=== PATIENT | male | born 1955 | race Hispanic/Latino ===

== ENCOUNTER 2019-12-22 21:33 | Inpatient (IN) | payer MEDICARE ==
[~2019-12-22] VITALS: Ht 177.8 cm; Wt 113.9 kg
[2019-12-22] MEDS ORDERED: SODIUM CHLORIDE 0.9% 1000ML 1,000 ML IV ONE ×2 (21:47→21:48)
[2019-12-22] MEDS ORDERED: HYDROMORPHONE 1 MG/1 ML AMP ONE (21:51)
[2019-12-22] MEDS ORDERED: METOCLOPRAMIDE 10 MG/2 ML VIAL ONE (22:02)
[2019-12-22] MEDS ORDERED: ZOSYN 3.375GM+NS 50ML 50 ML IV ONE (22:02)
[2019-12-22] MEDS ORDERED: ONDANSETRON HCL 4 MG/2 ML VIAL ONE (22:02)
[2019-12-22 22:11] LABS: BASOPHILS % (AUTO) 0.4 % (0.0-5.0); EOSINOPHILS % (AUTO) 0.6 % (0.0-8.0); LYMPHOCYTES % (AUTO) 7.9 % (21.0-51.0); MEAN CORPUSCULAR HEMOGLOBIN 29.9 pg (27.0-33.0); MEAN CORPUSCULAR HGB CONC 33.8 g/dL (32.0-36.0); MEAN CORPUSCULAR VOLUME 88.5 fL (79-99); MONOCYTES % (AUTO) 8.6 % (3.0-13.0); PLATELET COUNT (AUTO) 330 K/uL (130-400); RED BLOOD CELL COUNT(AUTO) 5.31 MIL/uL (4.50-6.20); RED CELL DISTRIBUTION WIDTH 13.4 % (11.0-15.5); WHITE BLOOD COUNT (AUTO) 25.7 K/uL (4.8-10.8)
[2019-12-22 22:28] LABS: INR 1.28 (0.85-1.15); PARTIAL THROMBOPLASTIN TIME 37.6 SEC (26.3-35.5); PROTHROMBIN TIME 13.7 SEC (9.6-11.6)
[2019-12-22 22:33] LABS: CREATININE 4.9 mg/dL (0.5-1.5); POTASSIUM 3.7 mmol/L (3.5-5.1)
[2019-12-22 22:55] LABS: ALBUMIN 3.2 g/dL (3.5-5.0); BILIRUBIN,TOTAL 1.9 mg/dL (0.2-1.0); TOTAL PROTEIN, SERUM 7.9 g/dL (6.0-8.3)
[2019-12-22 22:59] LABS: APPEARANCE,URINE Cloudy (CLEAR); BILIRUBIN,URINE Moderate (NEGATIVE); COLOR,URINE Dark Yellow (YELLOW); GLUCOSE, URINE (UA) Negative (NEGATIVE); KETONES,URINE Trace mg/dL (NEGATIVE); LEUKOCYTE ESTERASE ,URINE Trace (NEGATIVE); NITRATE,URINE Positive (NEGATIVE); OCCULT BLOOD,URINE Negative (NEGATIVE); PROTEIN,URINE POS 2+ mg/dL (NEGATIVE)
[2019-12-22] MEDS ORDERED: DEXTROSE 50%-WATER 50 ML DISP.SYRIN IV ONE (23:07)
[2019-12-22 23:27] LABS: AMORPHOUS SEDIMENT,UR Few /LPF (None Seen); BACTERIA,URINE Rare /HPF (None Seen); RBC,URINE None Seen /HPF (0-1); SQUAMOUS EPITHELIAL CELL,UR Rare /HPF (0-2); WBC,URINE 0-1 /HPF (0-1)
[2019-12-23] VITALS (23 sets, daily range): BP systolic 101–154; BP diastolic 59–83
[2019-12-23] MEDS ORDERED: ONDANSETRON HCL 4 MG/2 ML VIAL IV PRN (00:45)
[2019-12-23] MEDS ORDERED: GLUCAGON 1MG KIT 1 MG ML IM PRN (00:45)
[2019-12-23] MEDS ORDERED: DEXTROSE 5 %-0.45 % NACL 1,000 ML IV SCH (00:45)
[2019-12-23] MEDS: DEXTROSE 5 %-0.45 % NACL 1,000 ML IV SCH ×2 (00:45→05:12)
[2019-12-23] MEDS ORDERED: NITROGLYCERIN 0.4 MG SL TAB SL PRN (00:45)
[2019-12-23] MEDS ORDERED: MORPHINE SULFATE 2 MG/ML 1ML SYG IV PRN (00:45)
[2019-12-23] MEDS ORDERED: DEXTROSE 50%-WATER 50 ML DISP.SYRIN IV PRN (00:45)
[2019-12-23] MEDS ORDERED: ACETAMINOPHEN 325 MG TAB PO PRN ×2 (00:45)
[2019-12-23] MEDS ORDERED: METRONIDAZOLE 500MG/100ML BAG 100 ML ONE (01:04)
[2019-12-23] MEDS ORDERED: MORPHINE SULFATE 2 MG/ML 1ML SYG ONE (01:04)
[2019-12-23] MEDS ORDERED: AMLO10TA7 PO (03:52)
[2019-12-23] MEDS ORDERED: HYDR25TA PO (03:52)
[2019-12-23] MEDS ORDERED: ROSU10TA28 PO (03:52)
[2019-12-23] MEDS ORDERED: LISI-613 PO (03:52)
[2019-12-23] MEDS: FAMOTIDINE/PF 20 MG/2 ML VIAL IV SCH (08:49)
[2019-12-23] MEDS: METRONIDAZOLE 500MG/100ML BAG 100 ML IV SCH ×2 (08:49→17:19)
[2019-12-23 09:19] LABS: HEMATOCRIT 38.8 % (42-54); MEAN CORPUSCULAR HEMOGLOBIN 29.6 pg (27.0-33.0); MEAN CORPUSCULAR HGB CONC 34.5 g/dL (32.0-36.0); MEAN CORPUSCULAR VOLUME 85.7 fL (79-99); RED BLOOD CELL COUNT(AUTO) 4.53 MIL/uL (4.50-6.20); RED CELL DISTRIBUTION WIDTH 13.4 % (11.0-15.5); WHITE BLOOD COUNT (AUTO) 18.7 K/uL (4.8-10.8)
[2019-12-23 09:42] LABS: CREATININE 2.9 mg/dL (0.5-1.5); POTASSIUM 3.8 mmol/L (3.5-5.1)
[2019-12-23] MEDS: ZOSYN 3.375GM+NS 50ML 50 ML IV SCH ×2 (11:10→21:05)
[2019-12-23] MEDS ORDERED: LACTATED RINGERS 1000ML 1,000 ML IV ONE (12:26)
[2019-12-23] MEDS ORDERED: DEXAMETHASONE SOD PHOSPHATE 10MG/ML 1ML VIAL ONE (12:46)
[2019-12-23] MEDS ORDERED: SUCCINYLCHOLINE CHLORIDE 20 MG/ML 10 ML VIAL ONE (12:46)
[2019-12-23] MEDS ORDERED: LIDOCAINE PF 2% 5ML ABBOJECT ONE (12:46)
[2019-12-23] MEDS ORDERED: PROPOFOL 10 MG/ML 20ML VIAL IV ONE (12:47)
[2019-12-23] MEDS ORDERED: ROCURONIUM 10MG/1ML SYR 10 MG/ML ML ONE ×2 (12:47→13:39)
[2019-12-23] MEDS ORDERED: NEOSTIGMINE 5MG/5ML SYR IV ONE (12:47)
[2019-12-23] MEDS ORDERED: ONDANSETRON HCL 4 MG/2 ML VIAL ONE (12:47)
[2019-12-23] MEDS ORDERED: GLYCOPYRROLATE 1 MG/5 ML SYRINGE ONE (12:47)
[2019-12-23] MEDS ORDERED: MIDAZOLAM HCL 1 MG/ML 2ML VIAL ONE ×2 (12:47→13:08)
[2019-12-23] MEDS ORDERED: FENTANYL CITRATE PF 50 MCG/1 ML 2ML VIAL ONE ×2 (12:48→13:10)
[2019-12-23] MEDS ORDERED: BUPIVACAINE/PF 0.5% 30ML VIAL ONE (12:56)
[2019-12-23] MEDS ORDERED: PHENYLEPHRINE HCL 10 MG/ML 1ML VIAL IV ONE (13:23)
[2019-12-23] MEDS ORDERED: SUGAMMADEX SODIUM 200 MG/2 ML VIAL IV ONE (14:39)
[2019-12-23] MEDS: DEXTROSE 5 % AND 0.9 % NACL 1,000 ML IV SCH (15:50)
--- NOTE | 2019-12-23 16:00 | NUR ---
PATIENT RECEIVED FROM OR PATIENT RECEIVED FROM OR AT THIS TIME S/P LAP APPY BY DR FONTANA; ABD DRESSINGS DRY AND INTACT; IKE DRAIN NOTED TO RIGHT LOWER ABD, DRAINING SMALL AMOUNT OF SEROUS FLUID; NO COMPLAINTS VOICED BY PATIENT AT THIS TIME. HE IS AWAKE, ALERT, AND ORIENTED; STATES HE IS NOT HAVING PAIN AT THIS TIME. WILL CONTINUE TO MONITOR
[2019-12-23 16:27] LABS: CREATININE 2.6 mg/dL (0.5-1.5); POTASSIUM 3.9 mmol/L (3.5-5.1)
--- NOTE | 2019-12-23 18:28 | NUR ---
cm note pt resides at home with spouse, independent with adls/ambulation no dme, no home services. dc plan is back home at time of dc. Addendum: 12/23/19 at 1830 by TESFAYE STONE CM Amended: Links added.
--- NOTE | 2019-12-23 18:50 | NUR ---
FOLLOW UP DRESSINGS TO ABD AND IKE DRAIN REMAIN CLEAN, DRY, AND INTACT. PATIENT STATES HE IS DOING OK. NO COMPLAINTS NOTED AT THIS TIME
[2019-12-23 21:53] LABS: CREATININE 2.2 mg/dL (0.5-1.5); POTASSIUM 3.7 mmol/L (3.5-5.1)
[2019-12-24] VITALS (15 sets, daily range): BP systolic 94–159; BP diastolic 43–90
[2019-12-24] MEDS: METRONIDAZOLE 500MG/100ML BAG 100 ML IV SCH ×3 (02:45→17:00)
[2019-12-24 03:54] LABS: BASOPHILS % (AUTO) 0.2 % (0.0-5.0); EOSINOPHILS % (AUTO) 0.2 % (0.0-8.0); HEMATOCRIT 33.7 % (42-54); LYMPHOCYTES % (AUTO) 2.2 % (21.0-51.0); MEAN CORPUSCULAR HEMOGLOBIN 29.5 pg (27.0-33.0); MEAN CORPUSCULAR HGB CONC 34.4 g/dL (32.0-36.0); MEAN CORPUSCULAR VOLUME 85.8 fL (79-99); MONOCYTES % (AUTO) 4.1 % (3.0-13.0); PLATELET COUNT (AUTO) 204 K/uL (130-400); RED BLOOD CELL COUNT(AUTO) 3.93 MIL/uL (4.50-6.20); RED CELL DISTRIBUTION WIDTH 13.4 % (11.0-15.5)
[2019-12-24 04:08] LABS: MAGNESIUM 1.6 mg/dL (1.80-2.40); PHOSPHORUS 3.1 mg/dL (2.5-4.9); POTASSIUM 3.7 mmol/L (3.5-5.1)
[2019-12-24] MEDS: DEXTROSE 5 % AND 0.9 % NACL 1,000 ML IV SCH ×4 (04:35→17:55)
--- NOTE | 2019-12-24 05:39 | NUR ---
RN FLOAT AWARE (REY COURTNEY) OF BLOOD CULTURES RESULTS AND AWARE PT HAS SOME WHEEZING AND O2 BUMPED TO 3 LITERS NASAL CANULA PT DENIES CHEST PAIN PT DENIES ANY PAIN SHE STATED SHE WOULD PLACE SOME ORDERS IN
[2019-12-24] MEDS ORDERED: ALBUTEROL INHALER 90MCG/INH IH PRN (06:00)
[2019-12-24] MEDS ORDERED: NON-FORMULARY MEDICATION 1 EACH (Amlodipine Besylate 10 MG) PO SCH (09:00)
[2019-12-24] MEDS ORDERED: NON-FORMULARY MEDICATION 1 EACH (Rosuvastatin Calcium 10 MG) PO SCH (09:00)
[2019-12-24] MEDS ORDERED: ATORVASTATIN CALCIUM 20 MG TABLET PO SCH (09:00)
[2019-12-24] MEDS: FAMOTIDINE/PF 20 MG/2 ML VIAL IV SCH (09:08)
[2019-12-24] MEDS: AMLODIPINE BESYLATE 5 MG TAB PO SCH (09:18)
[2019-12-24] MEDS: ZOSYN 3.375GM+NS 50ML 50 ML IV SCH ×2 (09:18→22:02)
[2019-12-24] MEDS: LORAZEPAM 2 MG/ML 1 ML VIAL IM PRN ×2 (09:33→15:15)
[2019-12-24] MEDS ORDERED: DILTIAZEM HCL 5 MG/ML 10 ML VIAL IV SCH (09:45)
[2019-12-24] MEDS ORDERED: DILTIAZEM HCL 5 MG/ML 10 ML VIAL IV ONE (09:56)
[2019-12-24 10:01] LABS: CARBON DIOXIDE 16 mmol/L (21-32); CHLORIDE 106 mmol/L (101-111); CREATININE 2.2 mg/dL (0.5-1.5); GLOMERULAR FILTR. RATE CALC 32 mL/min (>60); GLUCOSE,RANDOM 153 mg/dL (70-105); POTASSIUM 3.4 mmol/L (3.5-5.1); SODIUM SERUM 137 mmol/L (136-145); UREA NITROGEN, BLOOD 40 mg/dL (7-18)
--- NOTE | 2019-12-24 10:02 | NUR ---
CHART CHECK COMPLETED. Pt IS A 64 Y.O. MALE ADMITTED SECONDARY TO ACUTE APPENDICITIS, ACUTE RENAL FAILURE, AND SEVERE SEPSIS. Pt HAS A PAST MEDICAL HISTORY SIGNIFICANT FOR HYPERTENSION, HLD, COLONOSCOPY. Pt CURRENTLY NPO SECONDARY TO ADMITTING DIAGNOSIS. PLEASE REQUEST FORMAL SKILLED SPEECH/SWALLOW EVALUATION IF Pt PRESENTS WITH +S/S OF ASPIRATION SUCH COUGH RESPONSE, THROAT CLEAR, OR WET VOCAL QUALITY DURING P.O. Addendum: 12/24/19 at 1006 by KEVON CHI, [facility], [address] Amended: Links added.
[2019-12-24 10:27] LABS: ALANINE AMINOTRANSFERASE 205 U/L (12-78); ALBUMIN 2.1 g/dL (3.5-5.0); ASPARTATE AMINOTRANSFERASE 257 U/L (10-37); BILIRUBIN,TOTAL 1.4 mg/dL (0.2-1.0); MYOGLOBIN 1481 ng/mL (10-92); TOTAL PROTEIN, SERUM 6.5 g/dL (6.0-8.3); TROPONIN I < 0.04 ng/mL (0.00-0.06)
[2019-12-24 10:31] LABS: CREATINE KINASE, TOTAL 3357 U/L (21-232)
[2019-12-24] MEDS ORDERED: PHARMACY COMMUNICATION MISC SCH (11:15)
--- NOTE | 2019-12-24 11:52 | NUR ---
BPCI Letter given to patient.
[2019-12-24 11:57] LABS: HEMATOCRIT 35.2 % (42-54)
[2019-12-24] MEDS: DILTIAZEM 125MG+100 ML NS 125 ML IV SCH (13:01)
--- NOTE | 2019-12-24 13:45 | NUR ---
ID CONSULT DR KNIGHT MADE AWARE OF CONSULT AT THIS TIME. NO NEW ORDERS GIVEN.
[2019-12-24] MEDS ORDERED: LORAZEPAM 2 MG/ML 1 ML VIAL IVP PRN (14:00)
--- NOTE | 2019-12-24 15:15 | NUR ---
PT WAS RECEIVED FROM 413 AFTER RAPID RESPONSE. PT WAS INTUBATED AND SETTINGS PRESCRIBED PER DR. COHEN. PT HAD RIGHT IJ 3 LUMEN PLACED, AND ARTERIAL LINE PLACED. DR. COHEN AT BEDSIDE AND ORDERS NOTED.
[2019-12-24 15:36] LABS: ABG BASE EXCESS -8.5 mmol/L (-2.0-3.0); ABG HCO3 17.4 mmol/L (21.0-28.0); ABG OXYGEN SATURATION 92.3 % (95.0-99.0); ABG PCO2 37 mmHg (35-48)
--- NOTE | 2019-12-24 15:40 | NUR ---
RAPID RESPONSE PATIENT HAD BEEN DIAPHORETIC, RESTLESS, CONFUSED, PULLED OUT PIV'S, DEVELOPED A FIB RVR WITH RATE IN 160S THIS AM; DR TABARES AND DR FONTANA HAVE BEEN CONSTANTLY GIVEN UPDATES ON PATIENT THROUGHOUT THE MORNING. NEW CONSULTS, NEW MED ORDERS PLACED, O2 REQUIREMENTS GRADUALLY INCREASING; KUB DONE, US BLE DONE, 1:1 SITTER ORDERED. INTERVENTIONS NOT WORKING. PATIENT CONTINUED TO REMOVE LEADS, O2, TRYING TO GET OOB, ATIVAN IM GIVEN, PATIENT STARTED SATTING 87-88% ON 6L NC, TACHYPNIC, TACHCARDIC, SUSTAINED A FIB RVR RATE IN 120S, CARDIZEM DRIP MAXED ALREADY AT 15MG/HR. PATIENT HAD HAD SMALL PERIODS OF INTERMITTANT REST PERIODS IN AM, BUT BECAME MORE AND MORE CONFUSED AND DIAPHORETIC. DR COHEN AND DR ROBERT MADE AWARE. RAPID RESPONSE CALLED. CHARGE NURSE, DAYLIN, UPDATING PATIENT'S VIA TELEPHONE. PATIENT TAKEN TO ICU AND REPORT GIVEN TO ICU NURSE, YOUNG ARZATE RN. CARE TO BE CONTINUED IN ICU. TO COME IN TO SEE PATIENT SOON, ACCORDING TO CHARGE NURSE. BARRY PACHECO FOR DR FONTANA ALSO NOTIFIED OF EVENTS AND PATIENT TRANSFER TO ICU.
[2019-12-24] MEDS ORDERED: SUCCINYLCHOLINE CHLORIDE 20 MG/ML 10 ML VIAL ONE (15:45)
[2019-12-24] MEDS ORDERED: KETAMINE 50MG/ML SYRINGE 50 MG/ML DISP.SYRIN IV ONE (15:46)
[2019-12-24] MEDS ORDERED: PROPOFOL 10 MG/ML 20ML VIAL IV ONE (15:46)
[2019-12-24] MEDS ORDERED: PROPOFOL 1000 MG/100 ML 100 ML IV ONE (15:51)
[2019-12-24] MEDS ORDERED: SODIUM CHLORIDE 0.9% 500ML 500 ML IV ONE (16:03)
--- NOTE | 2019-12-24 16:30 | NUR ---
HAD CALLED SECURITY TO BRING TO VISIT AND WAS ADVISED FROM SECURITY THAT HAD LEFT AND GONE HOME.
[2019-12-24] MEDS ORDERED: ROCURONIUM 10MG/1ML SYR 10 MG/ML ML ONE (16:31)
[2019-12-24] MEDS: LACTATED RINGERS 1000ML IV SCH (16:45)
[2019-12-24] MEDS ORDERED: NOREPINEPHRINE 4MG/NS 250ML 250 ML IV SCH (16:45)
[2019-12-24] MEDS ORDERED: VASOPRESSIN 20 UNITS in SODIUM CHLORIDE 0.9% 100 ML IV SCH (16:45)
[2019-12-24] MEDS: HEPARIN SODIUM 5000UNIT/ML 1ML VIAL SQ SCH (17:00)
[2019-12-24] MEDS ORDERED: VANCOMYCIN PROTOCOL PER PHARMACY IV SCH (17:00)
[2019-12-24] MEDS ORDERED: RENAL DOSE IV SCH (17:00)
[2019-12-24 17:39] LABS: ABG BASE EXCESS -9.1 mmol/L (-2.0-3.0); ABG HCO3 17.7 mmol/L (21.0-28.0); ABG OXYGEN SATURATION 96.8 % (95.0-99.0); ABG PCO2 42 mmHg (35-48)
--- NOTE | 2019-12-24 18:00 | NUR ---
PT TAKEN TO CT FOR CT OF ABDOMEN AND PELVIS AND CHEST. PT TOLERATED PROCEDURE AND PT HAD BEEN TRANSPORTED WITH VENTILATOR AND RESP. THERAPIST ACCOMPANIED NURSING STAFF.
--- NOTE | 2019-12-24 18:40 | NUR ---
DR COHEN NOTIFIED THE CT RESULTS REQUESTED PER RADIOLOGIST.
[2019-12-24] MEDS ORDERED: VANCOMYCIN 1GM+NS 250ML 250 ML IV SCH (19:00)
[2019-12-24] MEDS ORDERED: FENTANYL CITRATE PF 0.05 MG/ML 1,000 MCG in SODIUM CHLORIDE 0.9% 100 ML IVPB SCH (19:15)
[2019-12-24] MEDS ORDERED: MIDAZOLAM 100MG-0.9% NS 100ML 100ML BAG IV ONE (19:15)
[2019-12-24] MEDS: LACTATED RINGERS 1000ML 1,000 ML IV SCH ×2 (20:28→23:25)
[2019-12-24] MEDS ORDERED: COMPOUND IV REFRIGERATED 1 EACH IVSOLN MISC PRN (21:00)
[2019-12-24] MEDS: METOPROLOL TARTRATE 25 MG TAB PO SCH (21:00)
[2019-12-24] MEDS ORDERED: MIDAZOLAM 100MG-0.9% NS 100ML 100 ML IV ONE (22:15)
[2019-12-25] VITALS (15 sets, daily range): BP systolic 104–130; BP diastolic 53–70
[2019-12-25] MEDS: DEXTROSE 5 % AND 0.9 % NACL 1,000 ML IV SCH ×4 (00:35→20:24)
[2019-12-25] MEDS: METRONIDAZOLE 500MG/100ML BAG 100 ML IV SCH ×3 (00:53→16:59)
[2019-12-25 04:18] LABS: BASOPHILS % (AUTO) 0.2 % (0.0-5.0); EOSINOPHILS % (AUTO) 0.1 % (0.0-8.0); HEMATOCRIT 33.6 % (42-54); MEAN CORPUSCULAR HEMOGLOBIN 29.9 pg (27.0-33.0); MEAN CORPUSCULAR HGB CONC 34.8 g/dL (32.0-36.0); MEAN CORPUSCULAR VOLUME 85.9 fL (79-99); MONOCYTES % (AUTO) 6.4 % (3.0-13.0); NEUTROPHILS % (AUTO) 89.7 % (40.0-77.0); PLATELET COUNT (AUTO) 225 K/uL (130-400); RED BLOOD CELL COUNT(AUTO) 3.91 MIL/uL (4.50-6.20); RED CELL DISTRIBUTION WIDTH 13.8 % (11.0-15.5); WHITE BLOOD COUNT (AUTO) 17.3 K/uL (4.8-10.8)
[2019-12-25 05:05] LABS: ALBUMIN 1.7 g/dL (3.5-5.0); BILIRUBIN,TOTAL 1.2 mg/dL (0.2-1.0); CREATININE 1.7 mg/dL (0.5-1.5); POTASSIUM 3.5 mmol/L (3.5-5.1); TOTAL PROTEIN, SERUM 5.6 g/dL (6.0-8.3)
[2019-12-25] MEDS: LACTATED RINGERS 1000ML 1,000 ML IV SCH ×3 (05:07→20:17)
[2019-12-25] MEDS: HEPARIN SODIUM 5000UNIT/ML 1ML VIAL SQ SCH ×2 (05:17→17:03)
[2019-12-25] MEDS: PROPOFOL 1000 MG/100 ML 100 ML IV SCH ×2 (06:19→09:24)
[2019-12-25] MEDS: METOPROLOL TARTRATE 25 MG TAB PO SCH ×2 (08:26→21:36)
[2019-12-25] MEDS: FAMOTIDINE/PF 20 MG/2 ML VIAL IV SCH (08:26)
[2019-12-25] MEDS: AMLODIPINE BESYLATE 5 MG TAB PO SCH (08:26)
[2019-12-25] MEDS: ZOSYN 3.375GM+NS 50ML 50 ML IV SCH ×2 (08:58→21:36)
[2019-12-25] MEDS: DILTIAZEM 125MG+100 ML NS 125 ML IV SCH (09:29)
[2019-12-25 10:22] LABS: ABG BASE EXCESS -6.6 mmol/L (-2.0-3.0); ABG HCO3 16.7 mmol/L (21.0-28.0); ABG OXYGEN SATURATION 99.1 % (95.0-99.0); ABG PCO2 28 mmHg (35-48)
--- NOTE | 2019-12-25 11:15 | NUR ---
Patient status visited by meat grinder of carol, cardiology, meat grinder of hospitalist, new orders noted 30cc yellowish fluid out of tony after clamping og tube for meds, cleared 1000 dark brown w/froth fluid out of stomach area. 1045 added Fentanyl 25mcg to sedation 1117 up to 40mcg of fentanyl abg & echo completed, remains in acidosis; afebril, moves upper ext @ will, turned every 2 hours for comfort. vent settings maint by rt fio2 100%, peep 9, rate 24, tv 500 cardizem drip restarted @ 0855 for hr 110-120s; stopped @ 0950 due to hypotension, hr remains 90's, to low 100s. art line, in place flushed & cleared as needed irizarry dark marion, adequate amount recorded music added for comfort awaiting further orders d/t ct results. will cont to monitor, @ bs 1:1 with this nurse
[2019-12-25] MEDS ORDERED: PHARMACY COMMUNICATION MISC SCH (11:30)
[2019-12-25] MEDS: FENTANYL 2500MCG+NS 250ML 250 ML IV SCH (12:16)
--- NOTE | 2019-12-25 13:08 | NUR ---
[address] medina on phone, no changes in surgical plan, will bolus with LR, D5 order discontinued verbally, added fentanyl for sedation/comfort, suctioned by resp therapist. fi02 down to 80%
[2019-12-25] MEDS: FLUCONAZOLE 400 MG/NS 200 ML 200 ML IV SCH (15:08)
[2019-12-25] MEDS: LACTATED RINGERS 1000ML IV SCH (16:36)
[2019-12-25] MEDS: MIDAZOLAM 100MG-0.9% NS 100ML 100ML BAG IV SCH (17:49)
[2019-12-25] MEDS: VANCOMYCIN 1.25 GM in SODIUM CHLORIDE 0.9% 250 ML IV SCH (20:23)
[2019-12-26] VITALS (26 sets, daily range): BP systolic 97–142; BP diastolic 55–70
[2019-12-26] MEDS: METRONIDAZOLE 500MG/100ML BAG 100 ML IV SCH ×3 (00:11→17:17)
[2019-12-26] MEDS: DEXTROSE 5 % AND 0.9 % NACL 1,000 ML IV SCH (00:12)
[2019-12-26] MEDS: LACTATED RINGERS 1000ML 1,000 ML IV SCH ×4 (00:12→18:56)
[2019-12-26 03:18] LABS: BASOPHILS % (AUTO) 0.2 % (0.0-5.0); EOSINOPHILS % (AUTO) 0.2 % (0.0-8.0); HEMATOCRIT 30.1 % (42-54); LYMPHOCYTES % (AUTO) 5.7 % (21.0-51.0); MEAN CORPUSCULAR HEMOGLOBIN 29.3 pg (27.0-33.0); MEAN CORPUSCULAR HGB CONC 34.2 g/dL (32.0-36.0); MEAN CORPUSCULAR VOLUME 85.5 fL (79-99); MONOCYTES % (AUTO) 5.6 % (3.0-13.0); PLATELET COUNT (AUTO) 168 K/uL (130-400); RED BLOOD CELL COUNT(AUTO) 3.52 MIL/uL (4.50-6.20); RED CELL DISTRIBUTION WIDTH 14.2 % (11.0-15.5); WHITE BLOOD COUNT (AUTO) 11.8 K/uL (4.8-10.8)
[2019-12-26 03:36] LABS: ALBUMIN 1.4 g/dL (3.5-5.0); BILIRUBIN,TOTAL 0.9 mg/dL (0.2-1.0); CREATININE 1.6 mg/dL (0.5-1.5); MAGNESIUM 2.1 mg/dL (1.80-2.40); POTASSIUM 3.5 mmol/L (3.5-5.1); TOTAL PROTEIN, SERUM 5.2 g/dL (6.0-8.3)
[2019-12-26] MEDS: HEPARIN SODIUM 5000UNIT/ML 1ML VIAL SQ SCH ×2 (04:36→17:18)
[2019-12-26] MEDS: MIDAZOLAM 100MG-0.9% NS 100ML 100ML BAG IV SCH ×2 (04:59→21:36)
[2019-12-26] MEDS: FAMOTIDINE/PF 20 MG/2 ML VIAL IV SCH (09:16)
[2019-12-26] MEDS: METOPROLOL TARTRATE 25 MG TAB PO SCH ×2 (09:16→21:36)
[2019-12-26] MEDS: ZOSYN 3.375GM+NS 50ML 50 ML IV SCH ×2 (09:17→21:37)
[2019-12-26] MEDS ORDERED: EPINEPHRINE 0.1 MG/ML 10 ML SYG ONE (12:30)
[2019-12-26] MEDS: FLUCONAZOLE 400 MG/NS 200 ML 200 ML IV SCH (15:33)
[2019-12-26] MEDS: LACTATED RINGERS 1000ML IV SCH (15:34)
[2019-12-26] MEDS: VANCOMYCIN 1.25 GM in SODIUM CHLORIDE 0.9% 250 ML IV SCH (19:04)
[2019-12-26] MEDS: FENTANYL 2500MCG+NS 250ML 250 ML IV SCH (22:13)
[2019-12-27] VITALS (24 sets, daily range): BP systolic 114–173; BP diastolic 47–85
[2019-12-27] MEDS: METRONIDAZOLE 500MG/100ML BAG 100 ML IV SCH ×3 (00:06→16:06)
[2019-12-27] MEDS: LACTATED RINGERS 1000ML 1,000 ML IV SCH ×3 (01:38→16:06)
[2019-12-27] MEDS: HEPARIN SODIUM 5000UNIT/ML 1ML VIAL SQ SCH ×2 (05:00→16:27)
[2019-12-27 05:39] LABS: BASOPHILS % (AUTO) 0.2 % (0.0-5.0); EOSINOPHILS % (AUTO) 0.6 % (0.0-8.0); HEMATOCRIT 31.9 % (42-54); LYMPHOCYTES % (AUTO) 7.4 % (21.0-51.0); MEAN CORPUSCULAR HEMOGLOBIN 29.3 pg (27.0-33.0); MEAN CORPUSCULAR HGB CONC 33.9 g/dL (32.0-36.0); MEAN CORPUSCULAR VOLUME 86.7 fL (79-99); MONOCYTES % (AUTO) 5.7 % (3.0-13.0); NEUTROPHILS % (AUTO) 84.9 % (40.0-77.0); PLATELET COUNT (AUTO) 170 K/uL (130-400); RED BLOOD CELL COUNT(AUTO) 3.68 MIL/uL (4.50-6.20); RED CELL DISTRIBUTION WIDTH 14.5 % (11.0-15.5); WHITE BLOOD COUNT (AUTO) 12.2 K/uL (4.8-10.8)
[2019-12-27 06:09] LABS: ALBUMIN 1.3 g/dL (3.5-5.0); BILIRUBIN,TOTAL 0.8 mg/dL (0.2-1.0); CREATININE 1.4 mg/dL (0.5-1.5); POTASSIUM 3.5 mmol/L (3.5-5.1); TOTAL PROTEIN, SERUM 5.1 g/dL (6.0-8.3)
[2019-12-27] MEDS: ZOSYN 3.375GM+NS 50ML 50 ML IV SCH ×2 (08:52→23:15)
[2019-12-27] MEDS: FAMOTIDINE/PF 20 MG/2 ML VIAL IV SCH (08:53)
[2019-12-27] MEDS: METOPROLOL TARTRATE 25 MG TAB PO SCH ×2 (08:53→19:53)
[2019-12-27 13:03] LABS: ABG HCO3 21.2 mmol/L (21.0-28.0); ABG OXYGEN SATURATION 95.4 % (95.0-99.0); ABG PCO2 35 mmHg (35-48)
--- NOTE | 2019-12-27 14:10 | NUR ---
PT TOLERATED WEANING FROM VENT. PT NOT AWAKE OR FOLLOWING COMMANDS, BUT MOVING ALL EXTREMITIES. ABG COMPLETED. ABG AND PT STATUS REPORTED TO DR. CAI. NEW ORDERS RECEIVED AND NOTED. PT EXTUBATED ORDERED, PLACED ON AFM 40%. TOLERATING WELL.
[2019-12-27] MEDS: FLUCONAZOLE 400 MG/NS 200 ML 200 ML IV SCH (14:35)
[2019-12-27] MEDS: LACTATED RINGERS 1000ML IV SCH (16:07)
[2019-12-27] MEDS: VANCOMYCIN 1.5 GM in SODIUM CHLORIDE 0.9% 250 ML IV SCH (21:31)
[2019-12-28] VITALS (24 sets, daily range): BP systolic 145–198; BP diastolic 52–78
[2019-12-28] MEDS: METRONIDAZOLE 500MG/100ML BAG 100 ML IV SCH ×3 (01:02→17:22)
[2019-12-28 03:50] LABS: ABG BASE EXCESS -1.4 mmol/L (-2.0-3.0); ABG HCO3 21.3 mmol/L (21.0-28.0); ABG PCO2 31 mmHg (35-48)
[2019-12-28 05:40] LABS: HEMATOCRIT 32.7 % (42-54); MEAN CORPUSCULAR HEMOGLOBIN 29.9 pg (27.0-33.0); MEAN CORPUSCULAR HGB CONC 34.3 g/dL (32.0-36.0); MEAN CORPUSCULAR VOLUME 87.2 fL (79-99); RED BLOOD CELL COUNT(AUTO) 3.75 MIL/uL (4.50-6.20); RED CELL DISTRIBUTION WIDTH 14.6 % (11.0-15.5); WHITE BLOOD COUNT (AUTO) 14.7 K/uL (4.8-10.8)
[2019-12-28 06:00] LABS: ALBUMIN 1.4 g/dL (3.5-5.0); BILIRUBIN,TOTAL 1.1 mg/dL (0.2-1.0); CREATININE 1.4 mg/dL (0.5-1.5); POTASSIUM 3.4 mmol/L (3.5-5.1); TOTAL PROTEIN, SERUM 5.4 g/dL (6.0-8.3)
[2019-12-28] MEDS: HEPARIN SODIUM 5000UNIT/ML 1ML VIAL SQ SCH ×2 (06:20→16:27)
[2019-12-28] MEDS: METOPROLOL TARTRATE 25 MG TAB PO SCH ×2 (07:46→20:18)
[2019-12-28] MEDS: FAMOTIDINE/PF 20 MG/2 ML VIAL IV SCH (07:46)
[2019-12-28] MEDS: VANCOMYCIN 1.5 GM in SODIUM CHLORIDE 0.9% 250 ML IV SCH (07:51)
[2019-12-28] MEDS: ZOSYN 3.375GM+NS 50ML 50 ML IV SCH ×2 (08:07→22:32)
[2019-12-28] MEDS: HYDRALAZINE HCL 20 MG/ML VIAL IV PRN ×2 (09:35→17:22)
[2019-12-28] MEDS: LACTATED RINGERS 1000ML 1,000 ML IV SCH (11:56)
[2019-12-28] MEDS: FLUCONAZOLE 400 MG/NS 200 ML 200 ML IV SCH (14:33)
[2019-12-28] MEDS: LACTATED RINGERS 1000ML IV SCH (16:45)
[2019-12-28] MEDS ORDERED: SODIUM CHLORIDE 0.9% IV SCH (17:00)
[2019-12-28] MEDS ORDERED: NICARDIPINE HCL IV SCH (17:00)
[2019-12-28] MEDS: NICARDIPINE HCL IV SCH (18:58)
[2019-12-28] MEDS: SODIUM CHLORIDE 0.9% IV SCH (18:58)
[2019-12-29] VITALS (25 sets, daily range): BP systolic 130–179; BP diastolic 44–77
[2019-12-29] MEDS: METRONIDAZOLE 500MG/100ML BAG 100 ML IV SCH ×3 (02:03→17:15)
[2019-12-29] MEDS: LACTATED RINGERS 1000ML 1,000 ML IV SCH ×2 (02:14→16:32)
[2019-12-29] MEDS ORDERED: NICARDIPINE HCL 25 MG/10 ML ML IV ONE (03:24)
[2019-12-29] MEDS ORDERED: SODIUM CHLORIDE 0.9% 250 ML IV ONE (04:12)
[2019-12-29] MEDS ORDERED: PANTOPRAZOLE 40 MG/VIAL ONE (04:25)
[2019-12-29 04:46] LABS: BASOPHILS % (AUTO) 0.2 % (0.0-5.0); EOSINOPHILS % (AUTO) 0.6 % (0.0-8.0); HEMATOCRIT 33.3 % (42-54); LYMPHOCYTES % (AUTO) 8.3 % (21.0-51.0); MEAN CORPUSCULAR HEMOGLOBIN 28.9 pg (27.0-33.0); MEAN CORPUSCULAR VOLUME 87.4 fL (79-99); MONOCYTES % (AUTO) 7.9 % (3.0-13.0); NEUTROPHILS % (AUTO) 81.3 % (40.0-77.0); PLATELET COUNT (AUTO) 237 K/uL (130-400); RED BLOOD CELL COUNT(AUTO) 3.81 MIL/uL (4.50-6.20); RED CELL DISTRIBUTION WIDTH 14.7 % (11.0-15.5); WHITE BLOOD COUNT (AUTO) 14.1 K/uL (4.8-10.8)
[2019-12-29 05:17] LABS: ALBUMIN 1.4 g/dL (3.5-5.0); BILIRUBIN,TOTAL 1.1 mg/dL (0.2-1.0); CREATININE 1.3 mg/dL (0.5-1.5); POTASSIUM 3.3 mmol/L (3.5-5.1); TOTAL PROTEIN, SERUM 5.7 g/dL (6.0-8.3)
[2019-12-29] MEDS: HEPARIN SODIUM 5000UNIT/ML 1ML VIAL SQ SCH ×2 (05:32→17:16)
[2019-12-29] MEDS: ZOSYN 3.375GM+NS 50ML 50 ML IV SCH ×2 (09:57→22:00)
[2019-12-29] MEDS: FAMOTIDINE/PF 20 MG/2 ML VIAL IV SCH (09:58)
[2019-12-29] MEDS: METOPROLOL TARTRATE 25 MG TAB PO SCH ×2 (09:58→20:17)
[2019-12-29] MEDS: FLUCONAZOLE 400 MG/NS 200 ML 200 ML IV SCH (15:30)
[2019-12-29] MEDS: LACTATED RINGERS 1000ML IV SCH (16:45)
[2019-12-30] VITALS (48 sets, daily range): BP systolic 129–169; BP diastolic 42–70
[2019-12-30] MEDS: METRONIDAZOLE 500MG/100ML BAG 100 ML IV SCH ×3 (01:23→16:04)
[2019-12-30] MEDS: SODIUM CHLORIDE 0.9% IV SCH ×2 (02:30→12:59)
[2019-12-30] MEDS: NICARDIPINE HCL IV SCH ×2 (02:30→12:59)
[2019-12-30 05:18] LABS: BASOPHILS % (AUTO) 0.2 % (0.0-5.0); EOSINOPHILS % (AUTO) 0.5 % (0.0-8.0); HEMATOCRIT 33.5 % (42-54); LYMPHOCYTES % (AUTO) 6.2 % (21.0-51.0); MEAN CORPUSCULAR HEMOGLOBIN 28.9 pg (27.0-33.0); MEAN CORPUSCULAR HGB CONC 33.4 g/dL (32.0-36.0); MEAN CORPUSCULAR VOLUME 86.3 fL (79-99); MONOCYTES % (AUTO) 7.1 % (3.0-13.0); NEUTROPHILS % (AUTO) 85.1 % (40.0-77.0); PLATELET COUNT (AUTO) 266 K/uL (130-400); RED BLOOD CELL COUNT(AUTO) 3.88 MIL/uL (4.50-6.20); RED CELL DISTRIBUTION WIDTH 14.7 % (11.0-15.5); WHITE BLOOD COUNT (AUTO) 18.1 K/uL (4.8-10.8)
[2019-12-30] MEDS: HEPARIN SODIUM 5000UNIT/ML 1ML VIAL SQ SCH ×2 (05:23→16:17)
[2019-12-30 05:30] LABS: CREATININE 1.2 mg/dL (0.5-1.5); POTASSIUM 3.2 mmol/L (3.5-5.1)
[2019-12-30] MEDS: LACTATED RINGERS 1000ML 1,000 ML IV SCH ×2 (07:59→20:39)
[2019-12-30] MEDS: METOPROLOL TARTRATE 25 MG TAB PO SCH ×2 (08:00→20:39)
[2019-12-30] MEDS: FAMOTIDINE/PF 20 MG/2 ML VIAL IV SCH (08:00)
--- NOTE | 2019-12-30 08:05 | NUR ---
Jolie Ovalles, SOLAR MANAGER at bedside, made aware about latest K level 3.2, new orders given
[2019-12-30] MEDS ORDERED: POTASSIUM CHLORIDE 10% ELIXIR 20 MEQ/15 ML UDCUP PO SCH (08:15)
[2019-12-30] MEDS: ZOSYN 3.375GM+NS 50ML 50 ML IV SCH ×2 (09:21→20:39)
--- NOTE | 2019-12-30 09:40 | NUR ---
Discontinued NGT, as ordered per Dr Cobb, to be started on Clear Liquid diet and advance as tolerated.
--- NOTE | 2019-12-30 10:00 | NUR ---
DYSPHAGIA EVAL COMPLETED. -S/S OF ASPIRATION. RECOMMEND MECHANICAL SOFT/CHOPPED, THIN LIQUIDS; PILLS WHOLE WITH LIQUIDS. Addendum: 12/30/19 at 1309 by KEVON CHI, [facility] Amended: Links added.
--- NOTE | 2019-12-30 11:45 | NUR ---
RDSCREEN LOS X 7 Pt admitted with Sepsis, Acute Appendicitis, Acute renal failure. Pt s/p extubation 12/26 as per EMR. S/p Lap Appendectomy. Pending swallow eval, diet advanced to Clear Liquid diet order. NGT discontinued. Pt with elevated Na (154) with moderate fluid retention (3+ edema). Recommend Fluid Free water at least 1500mL per day as tolerated Recommend 60mL ProMod BID Ensure Clear BID RD to continue to monitor. Please notify as additional nutrition concerns arise. Thank you. Addendum: 12/30/19 at [address] Amended: Links added.
[2019-12-30] MEDS: FLUCONAZOLE 400 MG/NS 200 ML 200 ML IV SCH (14:04)
[2019-12-30] MEDS ORDERED: ALTEPLASE 2 MG/VIAL IVCATH SCH (17:00)
--- NOTE | 2019-12-30 17:00 | NUR ---
Blue port to central line noted not be flushing, meeting resistance, instilled 2 MG of Cath flow, as ordered per NATHAN Chaudhry
--- NOTE | 2019-12-30 18:40 | NUR ---
Able to withdraw 2.2 ml of blood and discarded from blue port without resistance, flushed with 10 ML of normal saline without resistance.
[2019-12-30] MEDS: LORAZEPAM 2 MG/ML 1 ML VIAL IM PRN (20:41)
[2019-12-30] MEDS: HYDROMORPHONE 1 MG/1 ML AMP IV PRN (20:42)
[2019-12-31] VITALS (51 sets, daily range): BP systolic 145–181; BP diastolic 48–71
[2019-12-31] MEDS: METRONIDAZOLE 500MG/100ML BAG 100 ML IV SCH ×3 (00:20→16:05)
[2019-12-31 03:34] LABS: HEMATOCRIT 31.8 % (42-54); MEAN CORPUSCULAR HEMOGLOBIN 29.7 pg (27.0-33.0); MEAN CORPUSCULAR HGB CONC 33.3 g/dL (32.0-36.0); MEAN CORPUSCULAR VOLUME 89.1 fL (79-99); RED BLOOD CELL COUNT(AUTO) 3.57 MIL/uL (4.50-6.20); RED CELL DISTRIBUTION WIDTH 15.1 % (11.0-15.5)
[2019-12-31 03:42] LABS: CREATININE 1.3 mg/dL (0.5-1.5); MAGNESIUM 1.8 mg/dL (1.80-2.40); POTASSIUM 3.4 mmol/L (3.5-5.1)
[2019-12-31] MEDS: HEPARIN SODIUM 5000UNIT/ML 1ML VIAL SQ SCH ×2 (05:00→16:10)
[2019-12-31] MEDS: MAGNESIUM 2GM PREMIX 50ML 50 ML IV SCH (06:55)
[2019-12-31] MEDS ORDERED: SODIUM CHLORIDE 0.9% 500ML 500 ML IV ONE (07:12)
[2019-12-31] MEDS ORDERED: POTASSIUM CHLORIDE 10% ELIXIR 20 MEQ/15 ML UDCUP PO SCH (07:30)
--- NOTE | 2019-12-31 07:45 | NUR ---
Jolie Ovalles, SUPPLY CHAIN DESIGN MANAGER at bedside to assess patient, new orders given.
[2019-12-31] MEDS: METOPROLOL TARTRATE 25 MG TAB PO SCH ×2 (07:46→20:38)
[2019-12-31] MEDS: FAMOTIDINE/PF 20 MG/2 ML VIAL IV SCH (08:05)
--- NOTE | 2019-12-31 09:00 | NUR ---
FOLLOW UP COMPLETED. TANKMAN COORDINATED WITH NURSE CURTIS Pt FED BY NURSING THIS AM WITH NO OVERT S/S OF ASPIRATION. Pt CURRENTLY TOLERATING DIET. RECOMMEND CONTINUED P.O. OF REGULAR TEXTURE, THIN LIQUIDS. Addendum: 12/31/19 at [address] Amended: Links added.
[2019-12-31] MEDS: ZOSYN 3.375GM+NS 50ML 50 ML IV SCH ×2 (09:04→20:38)
[2019-12-31] MEDS: SODIUM CHLORIDE 0.9% IV SCH (10:39)
[2019-12-31] MEDS: NICARDIPINE HCL IV SCH (10:39)
[2019-12-31] MEDS: HYDROMORPHONE 1 MG/1 ML AMP IV PRN ×2 (12:01→20:38)
--- NOTE | 2019-12-31 12:05 | NUR ---
Dr Jamison at bedside to assess patient, new orders given
[2019-12-31] MEDS: DEXTROSE 5%-WATER 1,000 ML IV SCH (12:22)
--- NOTE | 2019-12-31 13:55 | NUR ---
BARRY Schneider at bedside, notified about slight redness noted to lower quadrant abdomen, no new orders given
[2019-12-31] MEDS: FLUCONAZOLE 400 MG/NS 200 ML 200 ML IV SCH (14:10)
[2019-12-31] MEDS: DILTIAZEM 125MG+100 ML NS 125 ML IV SCH (20:39)
[2020-01-01] VITALS (24 sets, daily range): BP systolic 145–180; BP diastolic 49–88
[2020-01-01] MEDS: METRONIDAZOLE 500MG/100ML BAG 100 ML IV SCH ×3 (01:00→21:20)
[2020-01-01] MEDS: DEXTROSE 5%-WATER 1,000 ML IV SCH ×2 (01:35→10:16)
[2020-01-01 04:38] LABS: CREATININE 1.4 mg/dL (0.5-1.5); POTASSIUM 3.3 mmol/L (3.5-5.1)
[2020-01-01 05:01] LABS: MEAN CORPUSCULAR HEMOGLOBIN 29.3 pg (27.0-33.0); MEAN CORPUSCULAR HGB CONC 32.9 g/dL (32.0-36.0); MEAN CORPUSCULAR VOLUME 89.1 fL (79-99); RED BLOOD CELL COUNT(AUTO) 3.48 MIL/uL (4.50-6.20); RED CELL DISTRIBUTION WIDTH 15.3 % (11.0-15.5); WHITE BLOOD COUNT (AUTO) 15.8 K/uL (4.8-10.8)
[2020-01-01] MEDS: HYDRALAZINE HCL 20 MG/ML VIAL IV PRN (05:27)
[2020-01-01] MEDS: HEPARIN SODIUM 5000UNIT/ML 1ML VIAL SQ SCH ×2 (06:28→17:00)
[2020-01-01] MEDS: METOPROLOL TARTRATE 25 MG TAB PO SCH ×2 (08:55→21:20)
[2020-01-01] MEDS: FAMOTIDINE/PF 20 MG/2 ML VIAL IV SCH (08:55)
--- NOTE | 2020-01-01 09:27 | NUR ---
Pt taken to laborer cutting tool for cardiac cath procedure. Pt has no C/O pain or discomfort at this time. Physician in to discuss marisa with pt and answer any question. Will monitor pt upon his return.
[2020-01-01] MEDS: ZOSYN 3.375GM+NS 50ML 50 ML IV SCH ×2 (10:11→21:20)
[2020-01-01] MEDS: SODIUM CHLORIDE 0.9% IV SCH (11:44)
[2020-01-01] MEDS: NICARDIPINE HCL IV SCH (11:44)
[2020-01-01] MEDS: FLUCONAZOLE 400 MG/NS 200 ML 200 ML IV SCH (15:00)
--- NOTE | 2020-01-01 15:53 | NUR ---
FOLLOW UP Pt TOLERATING CURRENT MECHANICAL SOFT, THIN LIQUID DIET. RECOMMEND CONTINUED DIET AT THIS TIME. PLEASE REQUEST RE-EVALUATION IF Pt'S CURRENT STATUS CHANGES. Addendum: 01/01/20 at 1554 by KEVON CHI, [facility] Amended: Links added.
[2020-01-01] MEDS: HYDROMORPHONE 1 MG/1 ML AMP IV PRN (21:21)
[2020-01-02] VITALS (24 sets, daily range): BP systolic 132–172; BP diastolic 43–70
[2020-01-02] MEDS: METRONIDAZOLE 500MG/100ML BAG 100 ML IV SCH (01:03)
[2020-01-02] MEDS: DEXTROSE 5%-WATER 1,000 ML IV SCH (03:58)
[2020-01-02] MEDS: HEPARIN SODIUM 5000UNIT/ML 1ML VIAL SQ SCH ×2 (05:13→17:39)
[2020-01-02] MEDS: METOPROLOL TARTRATE 25 MG TAB PO SCH ×3 (07:45→21:08)
[2020-01-02] MEDS: FAMOTIDINE/PF 20 MG/2 ML VIAL IV SCH (07:45)
[2020-01-02] MEDS: SODIUM CHLORIDE 0.9% IV SCH ×3 (07:47→21:09)
[2020-01-02] MEDS: NICARDIPINE HCL IV SCH ×3 (07:47→21:09)
[2020-01-02] MEDS: HYDROCHLOROTHIAZIDE 25 MG TABLET PO SCH (08:34)
[2020-01-02 08:57] LABS: BASOPHILS % (AUTO) 0.1 % (0.0-5.0); EOSINOPHILS % (AUTO) 1.6 % (0.0-8.0); HEMATOCRIT 30.9 % (42-54); LYMPHOCYTES % (AUTO) 6.9 % (21.0-51.0); MEAN CORPUSCULAR HEMOGLOBIN 29.4 pg (27.0-33.0); MONOCYTES % (AUTO) 6.4 % (3.0-13.0); NEUTROPHILS % (AUTO) 84.6 % (40.0-77.0); PLATELET COUNT (AUTO) 250 K/uL (130-400); RED BLOOD CELL COUNT(AUTO) 3.47 MIL/uL (4.50-6.20); RED CELL DISTRIBUTION WIDTH 15.1 % (11.0-15.5); WHITE BLOOD COUNT (AUTO) 14.1 K/uL (4.8-10.8)
[2020-01-02] MEDS ORDERED: CLONIDINE 0.2 MG/ 24 HR PATCH TD SCH (09:00)
[2020-01-02] MEDS ORDERED: AMLODIPINE BESYLATE 5 MG TAB PO SCH ×2 (09:00→09:30)
[2020-01-02] MEDS: CLONIDINE 0.2 MG/ 24 HR PATCH TD SCH (09:19)
[2020-01-02 09:20] LABS: ALBUMIN 1.4 g/dL (3.5-5.0); BILIRUBIN,TOTAL 0.6 mg/dL (0.2-1.0); CREATININE 1.3 mg/dL (0.5-1.5); MAGNESIUM 1.9 mg/dL (1.80-2.40); PHOSPHORUS 3.5 mg/dL (2.5-4.9); POTASSIUM 3.1 mmol/L (3.5-5.1); TOTAL PROTEIN, SERUM 5.2 g/dL (6.0-8.3)
[2020-01-02] MEDS ORDERED: POTASSIUM CHLORIDE 20 MEQ ERTAB PO SCH (09:30)
--- NOTE | 2020-01-02 14:30 | NUR ---
PT HAD F/C DC'D ORDERED PER DR. SUAREZ. PT HAS BEEN SITTING UP IN CHAIR SINCE 10 AM AND TOLERATING WELL.
[2020-01-02] MEDS: FLUCONAZOLE 400 MG/NS 200 ML 200 ML IV SCH (15:00)
[2020-01-02 15:51] LABS: INR 1.12 (0.85-1.15); PARTIAL THROMBOPLASTIN TIME 27.8 SEC (26.3-35.5)
--- NOTE | 2020-01-02 17:39 | NUR ---
picc picc line 6french 3 lumen inserted to right upper arm using steril technique, pt wilfredo well. no adverse reactions noted. all ports flushed without difficulty. good blood return on all ports. pt denied any pain, numbness, tingling to right arm. picc line at 41 cm insertion site. 9 cm exposed. Chest xray report pending to be read by radiologist . unable to use picc line until read by md. pending orders to use . REport given to Bubba Goode RN.
[2020-01-02] MEDS: HYDROMORPHONE 1 MG/1 ML AMP IV PRN (21:11)
[2020-01-03] VITALS (19 sets, daily range): BP systolic 139–163; BP diastolic 43–74
[2020-01-03 03:45] LABS: BASOPHILS % (AUTO) 0.1 % (0.0-5.0); EOSINOPHILS % (AUTO) 1.4 % (0.0-8.0); HEMATOCRIT 30.8 % (42-54); LYMPHOCYTES % (AUTO) 7.7 % (21.0-51.0); MEAN CORPUSCULAR HEMOGLOBIN 29.2 pg (27.0-33.0); MEAN CORPUSCULAR HGB CONC 32.8 g/dL (32.0-36.0); MONOCYTES % (AUTO) 7.6 % (3.0-13.0); NEUTROPHILS % (AUTO) 82.6 % (40.0-77.0); PLATELET COUNT (AUTO) 276 K/uL (130-400); RED BLOOD CELL COUNT(AUTO) 3.46 MIL/uL (4.50-6.20); RED CELL DISTRIBUTION WIDTH 14.6 % (11.0-15.5); WHITE BLOOD COUNT (AUTO) 13.9 K/uL (4.8-10.8)
[2020-01-03 04:07] LABS: ALBUMIN 1.5 g/dL (3.5-5.0); BILIRUBIN,TOTAL 0.6 mg/dL (0.2-1.0); CREATININE 1.3 mg/dL (0.5-1.5); PHOSPHORUS 3.6 mg/dL (2.5-4.9); POTASSIUM 3.3 mmol/L (3.5-5.1); TOTAL PROTEIN, SERUM 5.3 g/dL (6.0-8.3)
[2020-01-03] MEDS: HYDROCHLOROTHIAZIDE 25 MG TABLET PO SCH (07:50)
[2020-01-03] MEDS: FAMOTIDINE/PF 20 MG/2 ML VIAL IV SCH (07:51)
[2020-01-03] MEDS: AMLODIPINE BESYLATE 5 MG TAB PO SCH (07:51)
[2020-01-03] MEDS: METOPROLOL TARTRATE 25 MG TAB PO SCH ×2 (07:51→20:42)
[2020-01-03] MEDS ORDERED: LIDOCAINE HCL-MPF 1% 2ML VIAL IV PRN (08:15)
[2020-01-03] MEDS ORDERED: POTASSIUM CHLORIDE 20MEQ/100ML 100 ML IV PRN (08:15)
[2020-01-03] MEDS ORDERED: HYDROCODONE/ACETAMINOPHEN 5/325 MG TAB PO PRN (09:00)
[2020-01-03] MEDS: DOCUSATE SODIUM 100 MG CAP PO SCH ×2 (09:00→20:42)
[2020-01-03] MEDS: BISACODYL 5 MG TABLET.DR PO SCH (09:00)
[2020-01-03] MEDS ORDERED: AMLODIPINE BESYLATE 5 MG TAB PO SCH (09:00)
[2020-01-03] MEDS ORDERED: ACETAMINOPHEN-CODEINE 300/30MG TAB PO PRN (09:00)
[2020-01-03] MEDS: HEPARIN SODIUM 5000UNIT/ML 1ML VIAL SQ SCH ×2 (10:00→17:04)
[2020-01-03] MEDS: ASCORBIC ACID 500 MG TAB PO SCH (10:10)
[2020-01-03] MEDS: FERROUS SULFATE 325 MG TABLET.DR PO SCH (10:10)
[2020-01-03] MEDS: MINOXIDIL 2.5 MG TAB PO SCH ×2 (10:11→20:42)
--- NOTE | 2020-01-03 15:40 | NUR ---
FOLLOW UP COMPLETED. Pt TOLERATION MECHANICAL SOFT, THIN LIQUIDS (GI SOFT) WITH NO OVERT S/S OF ASPIRATION. REPORTS OF LOW P.O., DIETITIAN IS ON THE CASE AT THIS TIME. RECOMMEND CONTINUED P.O. Addendum: 01/03/20 at 1544 by KEVON CHI, [facility] ST Amended: Links added.
[2020-01-03] MEDS: FUROSEMIDE 10 MG/ML 2ML VIAL IV SCH (17:09)
--- NOTE | 2020-01-03 18:57 | NUR ---
pt arrive on unit stable condition.
--- NOTE | 2020-01-03 22:00 | NUR ---
IKE DRAIN INTACT. MINIMAL DRAINAGE. PT IS STABLE. EDEMA NOTED TO LE AND RIGHT UPPER ARM. ABLE TO STATE CONCERNS. POSSIBLE DC TO [facility] TOMORROW.
[2020-01-04] MEDS: FUROSEMIDE 10 MG/ML 2ML VIAL IV SCH ×3 (00:25→16:43)
--- NOTE | 2020-01-04 02:30 | NUR ---
PT IS WEAK, SOB, AND MINIMALLY CONFUSED. AMBULATED FROM BED TO CHAIR WITHOUT ASSISTANCE. TOOK OXYGEN OFF. AND WET BED. HELPED PT GET CLEANED UP. CLEANED AND CHANGED BED SHEETS. PENIS IS SWOLLEN. URINE NOTED. PLACED BACK IN BED WITH HELP OF 2 ADDITIONAL NURSES. PT STATED AFTER MOVING HE FELT WORSE AND WEAKER. HAD A DIFFICULT TIME GETTING UP FROM CHAIR. PT IS ON FLUID RESTRICTIONS. TOLD TO MINIMIZE INTAKE. HAS BEEN COMPLIANT. AT THIS TIME REINSTRUCTED ON THIS. UNDERSTANDS NOW THE ISSUE. NOW IN BED, BEDALARM ON. URINAL AND BLUE PAD IN PLACE. PT AWARE OF CALL LIGHT TO REACH OUT FOR HELP.
[2020-01-04 03:43] VITALS: BP 150/66
[2020-01-04] MEDS: POTASSIUM CHLORIDE 20 MEQ ERTAB PO PRN (04:34)
[2020-01-04] MEDS: HEPARIN SODIUM 5000UNIT/ML 1ML VIAL SQ SCH ×2 (05:02→16:50)
[2020-01-04 07:34] LABS: BASOPHILS % (AUTO) 0.2 % (0.0-5.0); EOSINOPHILS % (AUTO) 0.7 % (0.0-8.0); HEMATOCRIT 29.8 % (42-54); LYMPHOCYTES % (AUTO) 8.1 % (21.0-51.0); MEAN CORPUSCULAR HEMOGLOBIN 29.6 pg (27.0-33.0); MEAN CORPUSCULAR HGB CONC 33.2 g/dL (32.0-36.0); MONOCYTES % (AUTO) 9.3 % (3.0-13.0); NEUTROPHILS % (AUTO) 81.3 % (40.0-77.0); PLATELET COUNT (AUTO) 279 K/uL (130-400); RED BLOOD CELL COUNT(AUTO) 3.35 MIL/uL (4.50-6.20); RED CELL DISTRIBUTION WIDTH 14.6 % (11.0-15.5); WHITE BLOOD COUNT (AUTO) 13.2 K/uL (4.8-10.8)
[2020-01-04 08:00] VITALS: BP 159/71
[2020-01-04 08:07] LABS: ALBUMIN 1.6 g/dL (3.5-5.0); BILIRUBIN,TOTAL 0.6 mg/dL (0.2-1.0); CREATININE 1.4 mg/dL (0.5-1.5); MAGNESIUM 1.8 mg/dL (1.80-2.40); PHOSPHORUS 3.4 mg/dL (2.5-4.9); POTASSIUM 3.3 mmol/L (3.5-5.1); TOTAL PROTEIN, SERUM 5.5 g/dL (6.0-8.3)
[2020-01-04] MEDS: FAMOTIDINE/PF 20 MG/2 ML VIAL IV SCH (08:41)
[2020-01-04] MEDS: AMLODIPINE BESYLATE 5 MG TAB PO SCH (08:42)
[2020-01-04] MEDS: DOCUSATE SODIUM 100 MG CAP PO SCH ×2 (08:42→21:00)
[2020-01-04] MEDS: ASCORBIC ACID 500 MG TAB PO SCH (08:42)
[2020-01-04] MEDS: METOPROLOL TARTRATE 25 MG TAB PO SCH ×2 (08:43→21:29)
[2020-01-04] MEDS: BISACODYL 5 MG TABLET.DR PO SCH (08:43)
[2020-01-04] MEDS ORDERED: POTASSIUM CHLORIDE 20 MEQ ERTAB PO SCH (08:45)
[2020-01-04] MEDS: MINOXIDIL 2.5 MG TAB PO SCH ×2 (09:00→21:29)
[2020-01-04] MEDS: FERROUS SULFATE 325 MG TABLET.DR PO SCH (09:00)
[2020-01-04 12:00] VITALS: BP 145/65
[2020-01-04] MEDS: METRONIDAZOLE 500 MG TABLET PO SCH ×2 (14:28→21:29)
[2020-01-04] MEDS: ZOSYN 3.375GM+NS 50ML 50 ML IV SCH ×2 (14:28→21:29)
[2020-01-04 16:00] VITALS: BP 130/59
[2020-01-04 16:38] LABS: MAGNESIUM 1.5 mg/dL (1.80-2.40); POTASSIUM 3.3 mmol/L (3.5-5.1)
[2020-01-04 19:36] VITALS: BP 142/57
[2020-01-04 23:45] VITALS: BP 142/61
--- NOTE | 2020-01-05 | NUR ---
PATIENT IS ABLE TO STATE NAME, , AND YEAR. INTERMITTENT CONFUSION. BILATERAL UPPER AND LOWER EXTREMITY WEAKNESS. 3+ PITTING EDEMA TO ENTIRE BODY. NO RESPIRATORY DISTRESS. ON 2L NC. PATIENT INCONTINENT OF BOWEL AND BLADDER. 2 LOOSE STOOL CHANGED.
[2020-01-05 04:00] VITALS: BP 144/60
[2020-01-05] MEDS: METRONIDAZOLE 500 MG TABLET PO SCH ×3 (04:36→20:33)
[2020-01-05] MEDS: HEPARIN SODIUM 5000UNIT/ML 1ML VIAL SQ SCH ×2 (04:37→18:20)
[2020-01-05] MEDS: ZOSYN 3.375GM+NS 50ML 50 ML IV SCH ×3 (04:37→20:58)
--- NOTE | 2020-01-05 05:00 | NUR ---
PATIENT CONFUSED. UNAWARE OF HIS LOCATION, DATE, OR TIME. PATIENT PULLED OUT PICC LINE TO SORAYA. NEW 20G STARTED LAC.
[2020-01-05 05:51] LABS: BASOPHILS % (AUTO) 0.4 % (0.0-5.0); EOSINOPHILS % (AUTO) 1.1 % (0.0-8.0); HEMATOCRIT 27.3 % (42-54); LYMPHOCYTES % (AUTO) 8.1 % (21.0-51.0); MEAN CORPUSCULAR HEMOGLOBIN 29.3 pg (27.0-33.0); MEAN CORPUSCULAR VOLUME 88.9 fL (79-99); MONOCYTES % (AUTO) 10.6 % (3.0-13.0); NEUTROPHILS % (AUTO) 79.4 % (40.0-77.0); PLATELET COUNT (AUTO) 285 K/uL (130-400); RED BLOOD CELL COUNT(AUTO) 3.07 MIL/uL (4.50-6.20); RED CELL DISTRIBUTION WIDTH 14.4 % (11.0-15.5); WHITE BLOOD COUNT (AUTO) 12.6 K/uL (4.8-10.8)
[2020-01-05 06:09] VITALS: BP 155/64
[2020-01-05 06:33] LABS: CREATININE 1.5 mg/dL (0.5-1.5)
[2020-01-05 07:15] LABS: ALBUMIN 1.5 g/dL (3.5-5.0); BILIRUBIN,TOTAL 0.5 mg/dL (0.2-1.0); MAGNESIUM 1.6 mg/dL (1.80-2.40); PHOSPHORUS 3.3 mg/dL (2.5-4.9); POTASSIUM 3.3 mmol/L (3.5-5.1); TOTAL PROTEIN, SERUM 5.3 g/dL (6.0-8.3)
[2020-01-05] MEDS ORDERED: POTASSIUM CHLORIDE 20 MEQ ERTAB PO SCH (08:45)
[2020-01-05] MEDS: FAMOTIDINE/PF 20 MG/2 ML VIAL IV SCH (09:45)
[2020-01-05] MEDS: BISACODYL 5 MG TABLET.DR PO SCH (09:45)
[2020-01-05] MEDS: DOCUSATE SODIUM 100 MG CAP PO SCH ×2 (09:45→20:32)
[2020-01-05] MEDS: FERROUS SULFATE 325 MG TABLET.DR PO SCH (09:45)
[2020-01-05] MEDS: METOPROLOL TARTRATE 25 MG TAB PO SCH ×2 (09:46→20:33)
[2020-01-05] MEDS: AMLODIPINE BESYLATE 5 MG TAB PO SCH (09:46)
[2020-01-05] MEDS: MINOXIDIL 2.5 MG TAB PO SCH ×2 (09:46→20:32)
[2020-01-05] MEDS: ASCORBIC ACID 500 MG TAB PO SCH (09:46)
[2020-01-05 11:00] VITALS: BP 156/68
[2020-01-05] MEDS: HYDROCODONE/ACETAMINOPHEN 5/325 MG TAB PO PRN (12:33)
[2020-01-05] MEDS: MAGNESIUM 2GM PREMIX 50ML 50 ML IV SCH (12:36)
--- NOTE | 2020-01-05 14:03 | NUR ---
REMOVED LOWER MID ABD IKE DRAIN TIP INTACT, COVERED SITE WITH LARGE BANDAID. DENIES PAIN DENIES NV. TOLERATED WELL.
[2020-01-05 16:00] VITALS: BP 143/63
[2020-01-05] MEDS: FUROSEMIDE 10 MG/ML 2ML VIAL IV SCH (18:07)
[2020-01-05 20:00] VITALS: BP 154/58
[2020-01-06] VITALS (7 sets, daily range): BP systolic 119–153; BP diastolic 54–68
[2020-01-06] MEDS: HEPARIN SODIUM 5000UNIT/ML 1ML VIAL SQ SCH ×2 (05:19→17:51)
[2020-01-06] MEDS: ZOSYN 3.375GM+NS 50ML 50 ML IV SCH ×3 (05:20→20:49)
[2020-01-06] MEDS: METRONIDAZOLE 500 MG TABLET PO SCH ×3 (05:20→20:49)
[2020-01-06] MEDS: FUROSEMIDE 10 MG/ML 2ML VIAL IV SCH ×2 (05:21→17:45)
[2020-01-06 05:29] LABS: BASOPHILS % (AUTO) 0.3 % (0.0-5.0); EOSINOPHILS % (AUTO) 1.9 % (0.0-8.0); HEMATOCRIT 26.2 % (42-54); LYMPHOCYTES % (AUTO) 8.9 % (21.0-51.0); MEAN CORPUSCULAR HEMOGLOBIN 29.7 pg (27.0-33.0); MEAN CORPUSCULAR HGB CONC 33.2 g/dL (32.0-36.0); MEAN CORPUSCULAR VOLUME 89.4 fL (79-99); MONOCYTES % (AUTO) 9.9 % (3.0-13.0); NEUTROPHILS % (AUTO) 78.6 % (40.0-77.0); PLATELET COUNT (AUTO) 345 K/uL (130-400); RED BLOOD CELL COUNT(AUTO) 2.93 MIL/uL (4.50-6.20); RED CELL DISTRIBUTION WIDTH 14.4 % (11.0-15.5); WHITE BLOOD COUNT (AUTO) 11.3 K/uL (4.8-10.8)
[2020-01-06 06:25] LABS: CREATININE 1.5 mg/dL (0.5-1.5); MAGNESIUM 1.7 mg/dL (1.80-2.40); POTASSIUM 3.4 mmol/L (3.5-5.1)
[2020-01-06] MEDS: DOCUSATE SODIUM 100 MG CAP PO SCH ×2 (09:02→20:48)
[2020-01-06] MEDS: FERROUS SULFATE 325 MG TABLET.DR PO SCH (09:02)
[2020-01-06] MEDS: ASCORBIC ACID 500 MG TAB PO SCH (09:02)
[2020-01-06] MEDS: MINOXIDIL 2.5 MG TAB PO SCH ×2 (09:02→20:48)
[2020-01-06] MEDS: BISACODYL 5 MG TABLET.DR PO SCH (09:02)
[2020-01-06] MEDS: METOPROLOL TARTRATE 25 MG TAB PO SCH ×2 (09:02→20:49)
[2020-01-06] MEDS: AMLODIPINE BESYLATE 5 MG TAB PO SCH (09:03)
[2020-01-06] MEDS: FAMOTIDINE/PF 20 MG/2 ML VIAL IV SCH (09:04)
[2020-01-06] MEDS ORDERED: POTASSIUM CHLORIDE 20 MEQ ERTAB PO SCH (09:30)
[2020-01-06] MEDS: HYDROCODONE/ACETAMINOPHEN 5/325 MG TAB PO PRN (09:55)
[2020-01-06] MEDS: MAGNESIUM 2GM PREMIX 50ML 50 ML IV SCH (11:19)
[2020-01-06] MEDS: POTASSIUM CHLORIDE 20 MEQ ERTAB PO PRN ×2 (14:00→14:19)
--- NOTE | 2020-01-06 15:55 | NUR ---
FOLLOW UP COMPLETED. Pt SEATED IN CHAIR AT THE TIME OF VISIT. Pt TOLERATING MECHANICAL SOFT, THIN LIQUID DIET. NURSE MAGDA REPORTS Pt HAS BEEN TOLERATING P.O. AT TIMES HE SLEEPS IN FOR BREAKFAST, BUT DOES PARTICIPATE IN P.O. FOR OTHER MEALS. SKILLED SPEECH THERAPY IS NOT RECOMMENDED AT THIS TIME. Pt TOLERATING DIET. Addendum: 01/06/20 at 1557 by KEVON CHI [facility] Amended: Links added.
[2020-01-06] MEDS ORDERED: PHARMACY COMMUNICATION MISC SCH (18:30)
--- NOTE | 2020-01-06 18:31 | NUR ---
Patient RUE w/ pitting edema. Ultrasound revealed positive thrombi in cephalic and brachial vein. Prophylactic heparin 5000 units administered as ordered. COntacted Dr. Mcguire to clear pt for anticoagulant therapy following surgery. Dr. Mcguire stated pt is ok to have anticoagulant therapy and this information was reported to Dr. Fowler who will order the anticoagulants.
[2020-01-06] MEDS ORDERED: HEPARIN 25000 UNITS/250 ML D5W 250 ML IV PRN (19:00)
[2020-01-06 21:49] LABS: INR 1.14 (0.85-1.15); PARTIAL THROMBOPLASTIN TIME 31.6 SEC (26.3-35.5); PROTHROMBIN TIME 12.2 SEC (9.6-11.6)
[2020-01-06] MEDS ORDERED: HEPARIN SODIUM 5000UNIT/ML 1ML VIAL ONE (22:08)
[2020-01-07 03:59] VITALS: BP 149/65
[2020-01-07] MEDS: METRONIDAZOLE 500 MG TABLET PO SCH ×3 (05:00→20:42)
[2020-01-07] MEDS: FUROSEMIDE 10 MG/ML 2ML VIAL IV SCH ×2 (05:00→17:20)
[2020-01-07] MEDS: ZOSYN 3.375GM+NS 50ML 50 ML IV SCH ×3 (05:00→20:43)
[2020-01-07 05:08] LABS: BASOPHILS % (AUTO) 0.3 % (0.0-5.0); EOSINOPHILS % (AUTO) 1.7 % (0.0-8.0); HEMATOCRIT 28.2 % (42-54); LYMPHOCYTES % (AUTO) 9.6 % (21.0-51.0); MEAN CORPUSCULAR HEMOGLOBIN 29.2 pg (27.0-33.0); MEAN CORPUSCULAR HGB CONC 32.6 g/dL (32.0-36.0); MEAN CORPUSCULAR VOLUME 89.5 fL (79-99); MONOCYTES % (AUTO) 9.4 % (3.0-13.0); NEUTROPHILS % (AUTO) 78.5 % (40.0-77.0); PLATELET COUNT (AUTO) 355 K/uL (130-400); RED BLOOD CELL COUNT(AUTO) 3.15 MIL/uL (4.50-6.20); RED CELL DISTRIBUTION WIDTH 14.6 % (11.0-15.5); WHITE BLOOD COUNT (AUTO) 10.8 K/uL (4.8-10.8)
[2020-01-07 05:25] LABS: CREATININE 1.4 mg/dL (0.5-1.5); MAGNESIUM 1.8 mg/dL (1.80-2.40); POTASSIUM 3.4 mmol/L (3.5-5.1)
[2020-01-07 08:43] VITALS: BP 108/58
[2020-01-07] MEDS: DOCUSATE SODIUM 100 MG CAP PO SCH ×2 (10:20→20:41)
[2020-01-07] MEDS: AMLODIPINE BESYLATE 5 MG TAB PO SCH (10:20)
[2020-01-07] MEDS: FERROUS SULFATE 325 MG TABLET.DR PO SCH (10:20)
[2020-01-07] MEDS: FAMOTIDINE/PF 20 MG/2 ML VIAL IV SCH (10:20)
[2020-01-07] MEDS: ASCORBIC ACID 500 MG TAB PO SCH (10:20)
[2020-01-07] MEDS: BISACODYL 5 MG TABLET.DR PO SCH (10:20)
[2020-01-07] MEDS: MINOXIDIL 2.5 MG TAB PO SCH ×2 (10:20→20:42)
[2020-01-07] MEDS: METOPROLOL TARTRATE 25 MG TAB PO SCH ×2 (10:20→20:43)
[2020-01-07] MEDS: MAGNESIUM 2GM PREMIX 50ML 50 ML IV SCH (10:21)
[2020-01-07 12:36] VITALS: BP 139/62
--- NOTE | 2020-01-07 13:36 | NUR ---
FOLLOW UP COMPLETED. Pt CURRENTLY TOLERATING DIET OF MECHANICAL SOFT/CHOPPED, THIN LIQUIDS. NO OVERT S/S OF ASPIRATION AT THIS TIME. RECOMMEND CONTINUED P.O. DIETETIC AIDE WILL CONTINUE TO FOLLOW Pt. Addendum: 01/07/20 at 1338 by KEVON CHI, S[facility] ST Amended: Links added.
[2020-01-07 19:00] VITALS: BP 141/69
[2020-01-07 20:36] VITALS: BP 159/69
[2020-01-08 00:03] VITALS: BP 124/54
[2020-01-08 03:54] VITALS: BP 145/60
[2020-01-08] MEDS: ZOSYN 3.375GM+NS 50ML 50 ML IV SCH ×3 (05:10→20:21)
[2020-01-08] MEDS: METRONIDAZOLE 500 MG TABLET PO SCH ×3 (05:11→20:21)
[2020-01-08] MEDS: FUROSEMIDE 10 MG/ML 2ML VIAL IV SCH ×2 (05:11→18:43)
[2020-01-08] MEDS: FERROUS SULFATE 325 MG TABLET.DR PO SCH (07:59)
[2020-01-08] MEDS: AMLODIPINE BESYLATE 5 MG TAB PO SCH (07:59)
[2020-01-08] MEDS: METOPROLOL TARTRATE 25 MG TAB PO SCH ×2 (07:59→20:21)
[2020-01-08] MEDS: ASCORBIC ACID 500 MG TAB PO SCH (07:59)
[2020-01-08] MEDS: MINOXIDIL 2.5 MG TAB PO SCH ×2 (07:59→20:20)
[2020-01-08] MEDS: BISACODYL 5 MG TABLET.DR PO SCH (08:00)
[2020-01-08] MEDS: FAMOTIDINE/PF 20 MG/2 ML VIAL IV SCH (08:00)
[2020-01-08] MEDS: DOCUSATE SODIUM 100 MG CAP PO SCH ×2 (08:00→20:18)
--- NOTE | 2020-01-08 08:00 | NUR ---
ASSESSMENT PT IS AAOX3 DENIES CP DENIES SOB DENIES NV NO COMPLAINTS RESTING IN BED. CURRENTLY ON HEPARIN GTT PER PROTOCOL. CALL LIGHT WITHIN REACH.
[2020-01-08 08:52] VITALS: BP 160/70
[2020-01-08 11:50] VITALS: BP 146/62
[2020-01-08 14:37] LABS: INR 1.18 (0.85-1.15); PARTIAL THROMBOPLASTIN TIME 78.4 SEC (26.3-35.5); PROTHROMBIN TIME 12.7 SEC (9.6-11.6)
--- NOTE | 2020-01-08 14:44 | NUR ---
MD ROUNDS DR ROBERT AND DR SUAREZ ORDERED TO DC HEPARIN.
--- NOTE | 2020-01-08 15:15 | NUR ---
[facility] CONSULT PATIENT ASSESSED REQUESTED: [facility] RECOMMENDATIONS SUBMITTED AND REPORT GIVEN TO PATIENT'S NURSE. Addendum: 01/09/20 at 1340 by VAIBHAV GILMORE LVN Amended: Links added.
[2020-01-08 15:34] VITALS: BP 149/62
[2020-01-08 20:02] VITALS: BP 161/68
[2020-01-08] MEDS: APIXABAN 5 MG TABLET PO SCH (20:20)
[2020-01-09] VITALS (7 sets, daily range): BP systolic 126–159; BP diastolic 49–74
[2020-01-09 04:41] LABS: BASOPHILS % (AUTO) 0.3 % (0.0-5.0); EOSINOPHILS % (AUTO) 1.9 % (0.0-8.0); HEMATOCRIT 28.4 % (42-54); LYMPHOCYTES % (AUTO) 9.8 % (21.0-51.0); MEAN CORPUSCULAR HEMOGLOBIN 29.2 pg (27.0-33.0); MEAN CORPUSCULAR HGB CONC 32.4 g/dL (32.0-36.0); MEAN CORPUSCULAR VOLUME 90.2 fL (79-99); MONOCYTES % (AUTO) 9.5 % (3.0-13.0); PLATELET COUNT (AUTO) 447 K/uL (130-400); RED BLOOD CELL COUNT(AUTO) 3.15 MIL/uL (4.50-6.20); RED CELL DISTRIBUTION WIDTH 14.3 % (11.0-15.5); WHITE BLOOD COUNT (AUTO) 8.8 K/uL (4.8-10.8)
[2020-01-09 04:52] LABS: ALBUMIN 1.8 g/dL (3.5-5.0); B-TYPE NATRIURETIC PEPTIDE 102 pg/mL (0-100); BILIRUBIN,TOTAL 0.4 mg/dL (0.2-1.0); CREATININE 1.2 mg/dL (0.5-1.5); MAGNESIUM 1.8 mg/dL (1.80-2.40); PHOSPHORUS 2.8 mg/dL (2.5-4.9); POTASSIUM 3.2 mmol/L (3.5-5.1)
[2020-01-09] MEDS: METRONIDAZOLE 500 MG TABLET PO SCH ×3 (05:20→21:08)
[2020-01-09] MEDS: ZOSYN 3.375GM+NS 50ML 50 ML IV SCH ×3 (05:20→21:07)
[2020-01-09] MEDS: FUROSEMIDE 10 MG/ML 2ML VIAL IV SCH ×2 (05:21→16:20)
[2020-01-09] MEDS: POTASSIUM CHLORIDE 10% ELIXIR 20 MEQ/15 ML UDCUP PO PRN ×3 (05:24→07:57)
[2020-01-09] MEDS: AMLODIPINE BESYLATE 5 MG TAB PO SCH (07:54)
[2020-01-09] MEDS: APIXABAN 5 MG TABLET PO SCH ×2 (07:54→21:07)
[2020-01-09] MEDS: FERROUS SULFATE 325 MG TABLET.DR PO SCH (07:54)
[2020-01-09] MEDS: FAMOTIDINE/PF 20 MG/2 ML VIAL IV SCH (07:55)
[2020-01-09] MEDS: ASCORBIC ACID 500 MG TAB PO SCH (07:55)
[2020-01-09] MEDS: DOCUSATE SODIUM 100 MG CAP PO SCH ×2 (07:55→21:00)
[2020-01-09] MEDS: METOPROLOL TARTRATE 25 MG TAB PO SCH ×2 (07:55→21:07)
[2020-01-09] MEDS: MINOXIDIL 2.5 MG TAB PO SCH ×2 (07:55→21:07)
[2020-01-09] MEDS: CLONIDINE 0.2 MG/ 24 HR PATCH TD SCH (07:55)
[2020-01-09] MEDS: BISACODYL 5 MG TABLET.DR PO SCH (07:55)
--- NOTE | 2020-01-09 08:00 | NUR ---
ASSESSMENT PT IS AAOX3 DENIES CP DENIES SOB DENIES NV NO COMPLAINTS AT THIS TIME, SITTING UP IN BED, AM MEDS GIVEN. NOTED ABD DISTENTION, SLIGHT TENDER TO TOUCH. CALL LIGHT WITHIN REACH.
--- NOTE | 2020-01-09 11:00 | NUR ---
CM NOTE/DCP MEET WITH , RECOMMENDED [facility]. MEET WITH PATIENT IN ROOM TO DISCUSS [facility]. PER PATIENT, DECISION TO BE MADE BY SPOUSE, SYDNIE. SYDNIE CALLED, VERBALIZED THAT PATIENT DOES NOT WISH TO GO TO FACILITY (SNF/LT[facility]) IF POSSIBLE AND WOULD LIKE TO RETURN HOME WITH HOME HEALTH. THIS REPORTED TO DR. MELO. PER MD, PATIENT IS NOT READY FOR TRANSFER LTAC OR HOME D/T CONFUSION. CM TO FOLLOW UP ON DCP.
--- NOTE | 2020-01-09 14:01 | NUR ---
HR DROPPED TO 30S FOR 2 SECONDS, PT WAS ASLEEP. WHEN PT AWAKENED HR BACK TO 80SR. NO COMPLAINTS. DR JAKOB Perez MADE AWARE, CONTINUING TO MONITOR.
--- NOTE | 2020-01-09 18:00 | NUR ---
STATUS RESTING IN BED NO COMPLAINTS. NO FURTHER BRADYCARDIC EPISODES REPORTED BY TELE.
[2020-01-09] MEDS: LACTULOSE 20 GM/30 ML UDCUP PO SCH (21:07)
[2020-01-10] MEDS: FUROSEMIDE 10 MG/ML 2ML VIAL IV SCH ×2 (02:16→15:14)
[2020-01-10 03:45] LABS: BASOPHILS % (AUTO) 0.3 % (0.0-5.0); EOSINOPHILS % (AUTO) 2.5 % (0.0-8.0); HEMATOCRIT 28.5 % (42-54); LYMPHOCYTES % (AUTO) 11.4 % (21.0-51.0); MEAN CORPUSCULAR HGB CONC 32.3 g/dL (32.0-36.0); MEAN CORPUSCULAR VOLUME 89.9 fL (79-99); MONOCYTES % (AUTO) 8.8 % (3.0-13.0); NEUTROPHILS % (AUTO) 76.6 % (40.0-77.0); PLATELET COUNT (AUTO) 480 K/uL (130-400); RED BLOOD CELL COUNT(AUTO) 3.17 MIL/uL (4.50-6.20); RED CELL DISTRIBUTION WIDTH 14.4 % (11.0-15.5); WHITE BLOOD COUNT (AUTO) 9.5 K/uL (4.8-10.8)
[2020-01-10 03:58] LABS: ALBUMIN 1.9 g/dL (3.5-5.0); BILIRUBIN,TOTAL 0.4 mg/dL (0.2-1.0); CREATININE 1.2 mg/dL (0.5-1.5); MAGNESIUM 1.6 mg/dL (1.80-2.40); POTASSIUM 3.3 mmol/L (3.5-5.1); TOTAL PROTEIN, SERUM 5.9 g/dL (6.0-8.3)
[2020-01-10 04:07] VITALS: BP 142/63
[2020-01-10] MEDS: ZOSYN 3.375GM+NS 50ML 50 ML IV SCH ×3 (05:18→20:12)
[2020-01-10] MEDS: METRONIDAZOLE 500 MG TABLET PO SCH ×3 (05:18→20:12)
[2020-01-10] MEDS: DOCUSATE SODIUM 100 MG CAP PO SCH ×2 (09:00→20:13)
[2020-01-10] MEDS: BISACODYL 5 MG TABLET.DR PO SCH (09:00)
[2020-01-10] MEDS: LACTULOSE 20 GM/30 ML UDCUP PO SCH ×2 (09:00→20:10)
[2020-01-10 09:48] VITALS: BP 128/59
[2020-01-10] MEDS: FERROUS SULFATE 325 MG TABLET.DR PO SCH (09:52)
[2020-01-10] MEDS: METOPROLOL TARTRATE 25 MG TAB PO SCH ×2 (09:59→20:12)
[2020-01-10] MEDS: ASCORBIC ACID 500 MG TAB PO SCH (09:59)
[2020-01-10] MEDS: APIXABAN 5 MG TABLET PO SCH ×2 (09:59→20:10)
[2020-01-10] MEDS: AMLODIPINE BESYLATE 5 MG TAB PO SCH (09:59)
[2020-01-10] MEDS: MINOXIDIL 2.5 MG TAB PO SCH ×2 (09:59→20:12)
[2020-01-10] MEDS: FAMOTIDINE/PF 20 MG/2 ML VIAL IV SCH (10:00)
[2020-01-10 12:04] VITALS: BP 151/62
[2020-01-10] MEDS ORDERED: BENZONATATE 100 MG CAPSULE PO PRN (17:15)
[2020-01-10 17:16] VITALS: BP 128/64
[2020-01-10 20:00] VITALS: BP 126/57
[2020-01-11] VITALS: BP 113/47
[2020-01-11 04:00] VITALS: BP 143/65
[2020-01-11] MEDS: METRONIDAZOLE 500 MG TABLET PO SCH ×3 (04:25→21:37)
[2020-01-11] MEDS: FUROSEMIDE 10 MG/ML 2ML VIAL IV SCH ×2 (04:25→12:12)
[2020-01-11] MEDS: ZOSYN 3.375GM+NS 50ML 50 ML IV SCH ×3 (04:25→21:37)
[2020-01-11 05:57] LABS: BASOPHILS % (AUTO) 0.4 % (0.0-5.0); EOSINOPHILS % (AUTO) 3.4 % (0.0-8.0); HEMATOCRIT 29.9 % (42-54); LYMPHOCYTES % (AUTO) 13.9 % (21.0-51.0); MEAN CORPUSCULAR HEMOGLOBIN 29.1 pg (27.0-33.0); MEAN CORPUSCULAR HGB CONC 31.8 g/dL (32.0-36.0); MEAN CORPUSCULAR VOLUME 91.7 fL (79-99); MONOCYTES % (AUTO) 8.5 % (3.0-13.0); NEUTROPHILS % (AUTO) 73.4 % (40.0-77.0); PLATELET COUNT (AUTO) 516 K/uL (130-400); RED BLOOD CELL COUNT(AUTO) 3.26 MIL/uL (4.50-6.20); RED CELL DISTRIBUTION WIDTH 14.4 % (11.0-15.5); WHITE BLOOD COUNT (AUTO) 8.3 K/uL (4.8-10.8)
[2020-01-11 06:20] LABS: BILIRUBIN,TOTAL 0.4 mg/dL (0.2-1.0); CREATININE 1.2 mg/dL (0.5-1.5); POTASSIUM 3.9 mmol/L (3.5-5.1); TOTAL PROTEIN, SERUM 6.3 g/dL (6.0-8.3)
[2020-01-11 08:00] VITALS: BP 133/68
[2020-01-11] MEDS: FERROUS SULFATE 325 MG TABLET.DR PO SCH (09:26)
[2020-01-11] MEDS: DOCUSATE SODIUM 100 MG CAP PO SCH ×2 (09:27→20:10)
[2020-01-11] MEDS: BISACODYL 5 MG TABLET.DR PO SCH (09:35)
[2020-01-11] MEDS: FAMOTIDINE/PF 20 MG/2 ML VIAL IV SCH (09:36)
[2020-01-11] MEDS: LEVOFLOXACIN 750 MG/D5W 150 ML 150 ML IV SCH (09:36)
[2020-01-11] MEDS: APIXABAN 5 MG TABLET PO SCH ×2 (09:39→20:09)
[2020-01-11] MEDS: METOPROLOL TARTRATE 25 MG TAB PO SCH ×2 (09:40→20:10)
[2020-01-11] MEDS: ASCORBIC ACID 500 MG TAB PO SCH (09:40)
[2020-01-11] MEDS: MINOXIDIL 2.5 MG TAB PO SCH ×2 (09:40→20:09)
[2020-01-11] MEDS: AMLODIPINE BESYLATE 5 MG TAB PO SCH (09:40)
[2020-01-11] MEDS: LACTULOSE 20 GM/30 ML UDCUP PO SCH ×3 (09:40→20:13)
[2020-01-11 12:00] VITALS: BP 148/65
[2020-01-11 16:00] VITALS: BP 156/64
[2020-01-11 20:20] VITALS: BP 147/67
[2020-01-12 00:37] VITALS: BP 129/67
[2020-01-12] MEDS: FUROSEMIDE 10 MG/ML 2ML VIAL IV SCH (03:39)
[2020-01-12] MEDS: METRONIDAZOLE 500 MG TABLET PO SCH ×2 (05:13→13:15)
[2020-01-12] MEDS: ZOSYN 3.375GM+NS 50ML 50 ML IV SCH ×2 (05:13→13:15)
[2020-01-12 06:39] VITALS: BP 154/65
[2020-01-12 08:00] VITALS: BP 137/53
[2020-01-12] MEDS: FERROUS SULFATE 325 MG TABLET.DR PO SCH (09:15)
[2020-01-12] MEDS: LEVOFLOXACIN 750 MG/D5W 150 ML 150 ML IV SCH (09:15)
[2020-01-12] MEDS: FAMOTIDINE/PF 20 MG/2 ML VIAL IV SCH (09:15)
[2020-01-12] MEDS: ASCORBIC ACID 500 MG TAB PO SCH (09:15)
[2020-01-12] MEDS: DOCUSATE SODIUM 100 MG CAP PO SCH (09:15)
[2020-01-12] MEDS: MINOXIDIL 2.5 MG TAB PO SCH (09:15)
[2020-01-12] MEDS: LACTULOSE 20 GM/30 ML UDCUP PO SCH (09:15)
[2020-01-12] MEDS: AMLODIPINE BESYLATE 5 MG TAB PO SCH (09:15)
[2020-01-12] MEDS: APIXABAN 5 MG TABLET PO SCH (09:16)
[2020-01-12] MEDS: METOPROLOL TARTRATE 25 MG TAB PO SCH (09:16)
[2020-01-12] MEDS: BISACODYL 5 MG TABLET.DR PO SCH (09:16)
[2020-01-12 11:12] VITALS: BP 140/64
[2020-01-12] MEDS ORDERED: METO25 PO (12:37)
[2020-01-12] MEDS ORDERED: APIX5TAB PO (12:37)
[2020-01-12] MEDS ORDERED: ASCO500T20 PO (12:37)
--- NOTE | 2020-01-12 15:08 | NUR ---
CM NOTE RECEIVED CALL FROM JAKOB CHARGE NURSE, PER DR Manzo wants setup for rehab and wound care for pt through [facility], spoke to pt and states is in agreement for referral to [facility], also requested i speak to his , call made to Yanely Castellanos-spouse and informed of md orders for Homehealth for rehab and wound care. she is in agreement, referral faxed to [facility] spoke to [employer] nurse customer solutions teammate states will call me back for approval.
[2020-01-12] MEDS ORDERED: HONEY 1 APPL/ML TUBE TP SCH (15:15)
--- NOTE | 2020-01-12 15:25 | NUR ---
cm note received call from bakari supervisor [employer] admissions at [facility], and states pt is accepted requested i fax clinical to . clinical faxed to that number. updated Zackary primary nurse pt is accepted and to call report to [phone] to nurse supervisor [employer] Becca.
[2020-01-12 16:00] VITALS: BP 157/67
--- NOTE | 2020-01-12 18:15 | NUR ---
NOTE DISCHARGE INSTRUCTIONS GIVEN TO PATIENT. VERBALIZED UDNERSTANDING. REFER TO DC SUMMARY FOR DETAILS.
== END 2020-01-12 18:15 | disposition home health service (06) | DRG 853 ==
LOC: EDH 21:33 → EDHIP 12-23 00:31 → 4CH 12-23 03:09 → DAHIP 12-24 16:25 → 4DH 01-03 18:53
PROVIDERS: ADMIT Internal Medicine; ATTEND Internal Medicine
PROC: 0DTJ4ZZ Resection of Appendix, Percutaneous Endoscopic Approach (ICD-10-PCS; principal; 2019-12-23 13:00)
PROC: 5A1945Z Respiratory Ventilation, 24-96 Consecutive Hours (ICD-10-PCS; 2019-12-24)
PROC: 0BH17EZ Insertion of Endotracheal Airway into Trachea, Via Natural or Artificial Opening (ICD-10-PCS; 2019-12-24)
PROC: 02HV33Z Insertion of Infusion Device into Superior Vena Cava, Percutaneous Approach (ICD-10-PCS; 2020-01-02)
DX: A41.9 Sepsis, unspecified organism (principal); R65.21 Severe sepsis with septic shock; G93.41 Metabolic encephalopathy; N17.0 Acute kidney failure with tubular necrosis; K35.32 Acute appendicitis with perforation, localized peritonitis, and gangrene, without abscess; E43 Unspecified severe protein-calorie malnutrition; I50.33 Acute on chronic diastolic (congestive) heart failure; J96.01 Acute respiratory failure with hypoxia; K35.21 Acute appendicitis with generalized peritonitis, with abscess; E87.0 Hyperosmolality and hypernatremia; E87.1 Hypo-osmolality and hyponatremia; E87.2 Acidosis; I13.0 Hypertensive heart and chronic kidney disease with heart failure and stage 1 through stage 4 chronic kidney disease, or unspecified chronic kidney disease; I82.621 Acute embolism and thrombosis of deep veins of right upper extremity; J98.11 Atelectasis; K56.0 Paralytic ileus; M62.82 Rhabdomyolysis; N39.0 Urinary tract infection, site not specified; Z16.24 Resistance to multiple antibiotics; N28.1 Cyst of kidney, acquired; E78.5 Hyperlipidemia, unspecified; Z20.828 Contact with and (suspected) exposure to other viral communicable diseases; B96.89 Other specified bacterial agents as the cause of diseases classified elsewhere; D64.9 Anemia, unspecified; E11.22 Type 2 diabetes mellitus with diabetic chronic kidney disease; E66.01 Morbid (severe) obesity due to excess calories; E86.0 Dehydration; E87.6 Hypokalemia; E87.8 Other disorders of electrolyte and fluid balance, not elsewhere classified; I48.91 Unspecified atrial fibrillation; K31.89 Other diseases of stomach and duodenum; K52.9 Noninfective gastroenteritis and colitis, unspecified; K76.0 Fatty (change of) liver, not elsewhere classified; R53.81 Other malaise; N18.9 Chronic kidney disease, unspecified; I16.0 Hypertensive urgency; N28.89 Other specified disorders of kidney and ureter; R47.02 Dysphasia; Z68.36 Body mass index [BMI] 36.0-36.9, adult; Z74.01 Bed confinement status; Z86.718 Personal history of other venous thrombosis and embolism; Z83.3 Family history of diabetes mellitus
CPT/HCPCS: 31500; 36415; 36600; 70450; 71045; 71250; 74018; 74176; 80048; 80053; 80202; 81001; 82140; 82435; 82550; 82803; 82947; 82948; 82977; 83605; 83735; 83874; 83880; 84100; 84132; 84145; 84295; 84484; 85014; 85018; 85025; 85027; 85610; 85730; 86900; 86901; 87040; 87070; 87071; 87076; 87077; 87088; 87186; 87205; 87426; 88304; 92610; 93005; 93306; 93970; 93971; 94002; 94003; 97039; A6250; C1751; C1894; C9113; G0378; J0171; J0330; J0360; J1100; J1170; J1450; J1644; J1940; J1956; J2001; J2060; J2250; J2370; J2405; J2543; J2704; J2710; J2765; J2997; J3010; J3370; J3475; J3480; J3490; J7030; J7040; J7042; J7050; J7070; J7120; U0003